=== PATIENT | female | born 1990 | race Caucasian/White ===

== ENCOUNTER 2016-04-15 05:59 | Day surgery (SDC) | payer OTHER, BC ==
[2016-04-14 18:38] LABS: ASCORBIC ACID (UR NOT ORDER) NEG (NEG); BILIRUBIN, URINE NEGATIVE (NEG); KETONE, URINE NEGATIVE (NEG); LEUKOCYTE ESTERASE(NOT OR TRACE (NEG); WBC (NOT ORDERED) (RFLEX) 1 (0-5)
--- NOTE | ~2016-04-15 | OP ---
Record Of Operation [facility] [address] [place]. [address] NAME: LORI AUSTIN : 88 [place]US [place] [facility] [facility] [place] [id number] AGE: 25 ADM/REG DATE : 04/15/16 MR#: [id number] REPORT SERV DATE: 04/15/16 DICTATED BY: JOYCE ERVIN DATE: 04/15/16 REPORT STATUS : Draft TRANSCRIBED BY: ANNL DATE: 04/15/16 DATE OF PROCEDURE: 04/15/2016 SURGEON: Joyce Ervin MD. TITLE OF OPERATIONS: Cystourethroscopy, right ureteroscopy with basket stone extraction. PREOPERATIVE DIAGNOSIS: Right renal stone. POSTOPERATIVE DIAGNOSIS: Right renal stone. INDICATIONS: Ms Austin is a 25-year-old female with a nonobstructing right renal stone. It is not visible on KUB. She has had pain with the stone. She has had resolution of her pain with the stone removal in the past. She is here for stone extraction. ANESTHESIA: General. COMPLICATIONS: None. IMPLANTS: None. SPECIMEN: Right renal stone. NARRATIVE: The patient was brought to the operating room, identified by a wristband. General anesthesia was induced and Ancef was given for preoperative antibiotics. She was placed in the dorsal lithotomy position, prepped and draped in sterile fashion. A cystoscope was placed into her urethra and into her bladder. A Sensor wire was placed into the right ureteral orifice and advanced up to the level of the kidney. A flexible ureteroscope was placed over the wire into the kidney. Kidney was systematically inspected. One 3 mm stone was encountered in the mid pole calyx. The stone was grasped with the NGage basket and removed from the kidney. There was no trauma to the ureter. The scope went up very easily, therefore decision was made to not leave a stent. The bladder was drained. The patient was awoken from anesthesia and transferred to the recovery room in stable condition. I will mail her [employer] forms to figure out why she keeps forming stones. WAYNE/TEJAS Joyce Ervin MD / [id number] CC: Joyce Ervin MD
[~2016-04-15 05:59] MED LIST: IBU-200200 MG PO; NORCO1 TA1 PO
[2016-04-21 11:06] LABS: SOURCE OF STONE Right Ureter (()); STONE COMPOSITION TWO DNR (())
== END 2016-04-15 23:59 | disposition home or self-care (01) ==
LOC: SDC 05:59
PROVIDERS: Urology
PROC: 0TC08ZZ Extirpation of Matter from Right Kidney, Via Natural or Artificial Opening Endoscopic (ICD-10-PCS; principal; 2016-04-15 07:15)
DX: N20.0 Calculus of kidney (principal); F41.9 Anxiety disorder, unspecified
CPT/HCPCS: 36415; 81001; 82365; 84703; 86850; 86900; 86901; A9270-GY; C1758; J0690; J2175; J2250; J2405; J2710; J3010; Q9967